=== PATIENT | male | born 1980 | race Caucasian/White ===

== ENCOUNTER 2022-08-28 07:23 | Emergency (ER) | payer OTHER ==
[2022-08-28 07:35] VITALS: BP 149/66
--- NOTE | 2022-08-28 08:26 | ED Physician Documentation ---
History of Present Illness - Stated complaint Stated Complaint: BACK PX/NUMBNESS - Chief complaint Chief Complaint: Back Pain - History obtained from History obtained from: Patient - Additonal information Additional information: Patient is a 42-year-old male presenting for low back pain radiating down his right leg that started around 5 PM yesterday evening. He reports picking up a laundry basket and feeling his back go out. He denies saddle anesthesia, loss of bowel or bladder control. He has tried lidocaine patch and diclofenac with some improvement. He does have a history of low back issues in the past. He denies a recent back injury. He denies previous back surgeries. He does not use a blood thinner. He does not receive spinal injections. He denies history of fever, chest pain, difficulty breathing, abdominal pain or vomiting. He was able to ambulate without significant discomfort today. low back pain radiating down right leg. reports picking up laundry basket and "by back went out." denies loss bowel/bladder control. has lidocaine patch and diclofenac with some relief. A&OX4 breathing unlabored. Review of Systems Constitutional: denies: Fever Nose: denies: Congestion Throat: denies: Sore throat Cardiac: denies: Chest pain / pressure Respiratory: denies: Dyspnea GI: denies: Abdominal Pain : denies: Dysuria Musculoskeletal: reports: Back pain Neurologic: denies: Headache PD PAST MEDICAL HISTORY - Past Medical History Past Medical History: Yes Cardiovascular: None Respiratory: None Neuro: None Endocrine/Autoimmune: None GI: None : None HEENT: None Psych: None Musculoskeletal: Chronic back pain Derm: None - Past Surgical History Past Surgical History: Yes HEENT: Other - Present Medications Home Medications: Ambulatory Orders Medication Instructions Recorded Confirmed Dextroamphetamine/Amphetamine 5 mg PO DAILY 08/28/22 08/28/22 [Adderall Xr 5 mg Capsule] Diclofenac Sodium Dr [Voltaren] 75 mg PO DAILY 08/28/22 08/28/22 Fexofenadine [Cora] 180 mg PO DAILY 08/28/22 08/28/22 Lidocaine Patch 5% [Lidoderm Patch] 1 patch TOP DAILY PRN #10 patch 08/28/22 Multivitamin [Theragran] 1 each PO DAILY 08/28/22 08/28/22 predniSONE [Prednisone 21-TAB dose 10 mg PO UD #1 each 08/28/22 pack] - Allergies Allergies/Adverse Reactions: Allergies Allergy/AdvReac Type Severity Reaction Status Date / Time No Known Drug Allergies Allergy Verified 08/28/22 07:30 - Social History Does the pt smoke?: No Smoking Status: Never smoker Does the pt drink ETOH?: Yes Does the pt have substance abuse?: No - Immunizations Immunizations are current?: Yes PD ED PE NORMAL - General General: Alert and oriented X 3, No acute distress, Well developed/nourished - HEENT HEENT: Atraumatic, Moist mucous membranes - Neck Neck: Supple, no meningeal sign - Cardiac Cardiac: RRR, Strong equal pulses - Respiratory Respiratory: No respiratory distress, Clear bilaterally - Abdomen Abdomen: Soft, Non tender, Non distended - Back Back: No spinal TTP - Derm Derm: Warm and dry - Extremities Extremities: No edema, Other (Pedal pulses intact; Positive straight leg raise on the right) - Neuro Neuro: Alert and oriented X 3, No motor deficit, Normal speech. No: No sensory deficit (Mild paresthesia to right outer thigh) Results - Vitals Vitals: Vital Signs - 24 hr 08/28/22 07:31 Temperature 36 C L Heart Rate 62 Respiratory 18 Rate Blood Pressure 149/66 H O2 Saturation 99 Oxygen O2 Source Room air PD MEDICAL DECISION MAKING - ED course ED course: Patient presenting for evaluation of low back pain radiating to the right leg. He is ambulatory on arrival. He has no red flag signs or symptoms suggesting cord compression. He is neurovascularly intact. His pain appears adequately controlled here as he is able to ambulate without significant difficulty. Discussed trial of prednisone for radicular Symptoms. The patient is counseled on concerning symptoms to return for as well as need for follow-up. Departure - Departure Disposition: 01 Home, Self Care Clinical Impression: Radicular low back pain Condition: Stable Instructions: Lumbar Radiculopathy, ED Low Back Pain Injury Prescriptions: Lidocaine Patch 5% [Lidoderm Patch] 1 patch TOP DAILY PRN #10 patch PRN Reason: pain predniSONE [Prednisone 21-TAB dose pack] 10 mg PO UD #1 each Comments: You were evaluated for low back pain. It appears that your injury is irritating one of the nerves from your low back. I will start you on a prednisone taper and would encourage you to continue with the diclofenac and lidocaine patches. I sent prescriptions to [facility] in [place]. [facility] If you have any worsening symptoms such as difficulty walking, difficulty controlling bowel or bladder function, increased pain or any concerns please return to the ER. Forms: Activity restrictions Discharge Date/Time: 08/28/22 08:55
== END 2022-08-28 08:55 | disposition home or self-care (01) ==
LOC: ED 07:23
DX: M54.16 Radiculopathy, lumbar region (principal)
CPT/HCPCS: 99282; 99284

== ENCOUNTER 2024-02-16 07:12 | Day surgery (SDC) | payer OTHER ==
[2024-02-16] MEDS: LACTATED RINGERS 1,000 ML IV ONE ×2 (07:33→09:02)
--- NOTE | 2024-02-16 08:19 | ANESTHESIA ---
Pre-Anesthesia VS, & Labs - Diagnosis desires sterilization - Procedure vasectomy Vital Signs: Temp Pulse Resp BP Pulse Ox O2 Flow Rate 36.6 C 67 18 122/60 96 02/16/24 07:24 02/16/24 07:24 02/16/24 07:24 02/16/24 07:24 02/16/24 07:24 Height: 5 ft 9 in Weight (kg): 94 kg Body Mass Index: 30.6 BMI Classification: Obese - NPO >8 hours Home Medications and Allergies Home Medications: Ambulatory Orders Escitalopram Oxalate [Lexapro] 20 mg PO DAILY 02/10/24 Meloxicam 7.5 mg PO DAILY PRN 02/10/24 Dextroamphetamine/Amphetamine [Adderall Xr 5 mg Capsule] 5 mg PO DAILY 08/28/22 Fexofenadine [Cora] 180 mg PO DAILY 08/28/22 Escitalopram Oxalate [Lexapro] 20 mg PO DAILY 02/10/24 Meloxicam 7.5 mg PO DAILY PRN 02/10/24 Allergies/Adverse Reactions: Allergies Allergy/AdvReac Type Severity Reaction Status Date / Time No Known Drug Allergies Allergy Verified 08/28/22 07:30 Anes History & Medical History - Anesthetic History Anesthesia Complications: reports: No previous complications - Medical History Cardiovascular: reports: None Pulmonary: reports: None Gastrointestinal: reports: None Urinary: reports: Kidney stones Neuro: reports: None Musculoskeletal: reports: Chronic back pain Endocrine/Autoimmune: reports: None Blood Disorders: reports: None Skin: reports: None Smoking Status: Never smoker Psychosocial: reports: Alcohol (occassional) History of Cancer?: No - Surgical History Eyes Ears Nose Throat (EENT): reports: Other Exam General: Alert, Oriented x3, Cooperative Dental: WNL Mouth Opening: Greater than 4 Fingerbreadths Neck Mobility: Normal Mallampati classification: II Thyromental Distance: greater than 6 cm Respiratory: Lungs clear Cardiovascular: Regular rate Plan Anesthesia Type: Total IV Consent for Procedure(s) Verified and Reviewed: Yes Code Status: Attempt Resuscitation ASA classification: 2-Mild systemic disease Is this case an emergency?: No
[2024-02-16] MEDS: LIDOCAINE 1% 50 ML MDV SUBQ ONE ×2 (08:43)
--- NOTE | 2024-02-16 09:14 | Discharge Plan ---
Discharge Plan Problem Reviewed?: Yes Disposition: 01 Home, Self Care Condition: Good Diet: Regular Activity Restrictions: Additional Comments (as instructed) Shower Restrictions: No (no bathing for one week) Driving Restrictions: No Instruction Topics: Vasectomy No Scalpel Additional Instructions or Follow Up instructions: You must use secondary contraceptive (eg condoms) for now After three months, contact Dr Carson's office to arrange for you to drop off a semen sample at a lab to confirm no more sperm No Smoking: If you smoke, Please STOP! Call for help. Follow-up with: BENNIE PASTRANA DO [Primary Care Provider] -
--- NOTE | 2024-02-16 09:16 | OPERATIVE REPORT ---
Operative Report - General Procedure Date: 02/16/24 Planned Procedure: Bilateral no scalpel vasectomy Pre-Op Diagnosis: Elective sterilization Procedure Performed: Bilateral no scalpel vasectomy Post Op Diagnosis: Elective sterilization - Procedure Note Primary Surgeon: Alli Anesthesia Provider: BRANDI Sahni Anesthesia Technique: MAC Findings: Normal vasectomy - Other Other Information/Narrative: After informed consent obtained patient brought to the OR and laid in supine position. The patient was anesthetized per anesthesia protocols and then prepped and draped in usual sterile fashion. A formal timeout was performed reconfirming the patient, procedure and laterality He is vas deferens identified through his right hemiscrotum. 1% lidocaine was used as local. Using a sharp mosquito is scrotal tissue was dissected away and his vas sheath was grasped using a ring clamp. This was sharply incised and the vas was identified and pulled out. It was clamped on both sides and the intervening 1 cm segment was cauterized away. The ends were cauterized as well. The ends were suture-ligated with chromic suture and then the distal end was buried using a fascial interposition stitch using 3-0 chromic suture. There was no bleeding. His skin was closed using a 3-0 chromic horizontal mattress stitch. An identical procedure performed on the left side. Band-Aids were placed.
[2024-02-16 09:47] VITALS: BP 119/90; O2SAT 99
--- NOTE | 2024-02-16 10:40 | ANESTHESIA POST OP EVALUATION ---
Anesthesia Post Eval - Post Anesthesia Eval Vitals: Last Vital Signs Temp 36.4 C L 02/16/24 09:42 Pulse 52 L 02/16/24 09:42 Resp 14 02/16/24 09:42 BP 119/90 H 02/16/24 09:42 Pulse Ox 99 02/16/24 09:42 O2 Flow Rate CV Function Including HR & BP: Stable Pain Control: Satisfactory Nausea & Vomiting: Negative Mental Status: Baseline Respiratory Status: Airway Patent Hydration Status: Satisfactory Anesthesia Complications: None
== END 2024-02-16 07:13 | disposition home or self-care (01) ==
LOC: OR 07:12
PROVIDERS: ATTEND Urology
DX: Z30.2 Encounter for sterilization (principal)